=== PATIENT | female | born 1940 | race Caucasian/White ===

== ENCOUNTER 2018-02-26 06:53 | Day surgery (SDC) | payer MEDICARE, BC ==
[2018-02-26] MEDS ORDERED: Sodium Chloride 0.9% 1,000 ML IV SCH (07:30)
[2018-02-26] MEDS ORDERED: Propofol 200 MG/20 ML SDV ONE (07:37)
[2018-02-26] MEDS ORDERED: fentaNYL 100 MCG/2 ML SDV ONE (07:37)
--- NOTE | 2018-02-26 11:53 | OR ---
DATE OF PROCEDURE: 02/26/2018 PROCEDURE: Colonoscopy. FINDINGS: 1. External hemorrhoids, mild. 2. Descending colon polyp, approximately 5 mm, completely removed using cold biopsy forceps. COMPLICATIONS: None. 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 ANESTHESIA: MAC. PREOPERATIVE DIAGNOSIS: Family history of colorectal cancer. POSTOPERATIVE DIAGNOSIS: Family history of colorectal cancer. RISKS: Risks, benefits, alternatives, and limitations including, but not limited to infection, bleeding, and perforation were explained to the patient who wished to proceed. PROCEDURE IN DETAIL: The patient was placed in left lateral decubitus position. Digital rectal exam was performed without abnormality. The scope was introduced and advanced atraumatically to the ileocecal valve. A photo was taken. The scope was brought back to the ascending, transverse, descending colon, and retroflexed. The aforementioned polyp was identified and completely removed. No abnormalities on retroflexion. The external hemorrhoids showed no significant abnormalities. The patient tolerated the procedure well. Carlos Dubois MD /[id number]
== END 2018-02-26 10:20 | disposition home or self-care (01) ==
LOC: JP.SDS 06:53
PROVIDERS: ATTEND Surgery
DX: Z12.11 Encounter for screening for malignant neoplasm of colon (principal); D12.4 Benign neoplasm of descending colon; K64.4 Residual hemorrhoidal skin tags; Z80.0 Family history of malignant neoplasm of digestive organs
CPT/HCPCS: 45380; 88305; J2704; J3010; J7040

== ENCOUNTER 2018-05-19 12:07 | Emergency (ER) | payer MEDICARE, BC ==
--- NOTE | 2018-05-19 12:12 | EDM.PDOC ---
ED HPI GENERAL MEDICAL PROBLEM - General Chief Complaint: General Stated Complaint: MEDICAL VIA TRI Time Seen by Provider: 05/19/18 12:15 Source of Information: Reports: Patient History Limitations: Reports: No Limitations - History of Present Illness INITIAL COMMENTS - FREE TEXT/NARRATIVE: was at home, started to get dizzy, head felt full and her left eye went blurry. She denies chest pain or sob; she has a hx of hypertension. Denies any CAD or lung issues. She feels "ok" now. No fever. Recently treated for a tick bite that got infected, to the right lower leg, states she finished Keflex yesterday. She does tell me she has a hx of anxiety; she doesn't think that this was caused from that. She used to be on Lorazepam for this. Onset: Today Location: Reports: Head Severity: Mild Improves with: Reports: None Worsens with: Reports: None - Related Data Allergies Allergy/AdvReac Type Severity Reaction Status Date / Time dapsone Allergy Swollen Verified 02/26/18 07:20 Tongue oseltamivir phosphate Allergy Swollen Verified 02/26/18 07:20 [From Tamiflu] Eyes Penicillins Allergy Rash Verified 02/26/18 07:20 Home Meds: Home Meds Desonide [Desonide 0.05%] 1 applic TOP DAILY PRN 02/24/18 [History] Fluocinonide [Lidex 0.05% Crm] 1 applic TOP BID 02/24/18 [History] Triamcinolone Acetonide [Triamcinolone Acetonide 0.1% Crm] 1 applic TOP DAILY PRN 02/24/18 [History] Carboxymethylcellulose Sodium [Refresh Tears] 1 drop EYEBOTH ASDIRECTED [History] Propylene Glycol/Peg 400 [Systane Liquid Gel Eye Drops] 1 drop EYEBOTH BEDTIME 05/19/18 [History] Past Medical History HEENT History: Reports: Allergic Rhinitis, Impaired Vision Cardiovascular History: Reports: High Cholesterol Gastrointestinal History: Reports: Hemorrhoids 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: , 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 Musculoskeletal History: Reports: Fracture Psychiatric History: Reports: Anxiety Dermatologic History: Reports: Eczema - Infectious Disease History Infectious Disease History: Reports: Chicken Pox - Past Surgical History HEENT Surgical History: Reports: Tonsillectomy Cardiovascular Surgical History: Reports: None GI Surgical History: Reports: Appendectomy, Colonoscopy Musculoskeletal Surgical History: Reports: None Dermatological Surgical History: Reports: Skin Biopsy Social & Family History - Caffeine Use Caffeine Use: Reports: Coffee ED ROS GENERAL - Review of Systems Review Of Systems: See Below HEENT: Reports: Other (blurry left eye vision, resolved) Respiratory: Reports: No Symptoms Cardiovascular: Reports: No Symptoms GI/Abdominal: Reports: No Symptoms : Reports: No Symptoms Musculoskeletal: Reports: No Symptoms Skin: Reports: No Symptoms Neurological: Reports: Dizziness Psychiatric: Reports: No Symptoms ED EXAM, GENERAL - Physical Exam Exam: See Below Exam Limited By: No Limitations General Appearance: Alert, WD/WN, No Apparent Distress Eye Exam: Right Eye: Vision Changes (blurry, floaters, now resolved), Bilateral Eye: EOMI, PERRL Head: Atraumatic, Normocephalic Neck: Normal Inspection, Full Range of Motion Respiratory/Chest: No Respiratory Distress, Lungs Clear, Normal Breath Sounds Cardiovascular: Normal Peripheral Pulses, Regular Rate, Rhythm Peripheral Pulses: 4+: Posterior Tibial (L), Posterior Tibial (R), Dorsalis Pedis (L), Dorsalis Pedis (R) GI/Abdominal: Normal Bowel Sounds, Soft, Non-Tender Back Exam: Normal Inspection, Full Range of Motion Extremities: Normal Inspection, Normal Range of Motion, Non-Tender Neurological: Alert, Oriented, CN II-XII Intact, Normal Cognition, Normal Gait, No Motor/Sensory Deficits Psychiatric: Normal Affect, Normal Mood Skin Exam: Warm, Dry, Intact, Normal Color, No Rash EKG INTERPRETATION EKG Date: 05/19/18 Time: 11:47 Rhythm: NSR Rate (Beats/Min): 99 EKG Interpretation Comments: SR with LVH Course - Vital Signs Last Recorded V/S: Last Vital Signs Temp 96.4 F 05/19/18 12:21 Pulse 98 05/19/18 13:21 Resp 20 05/19/18 13:21 BP 164/73 H 05/19/18 13:22 Pulse Ox 99 05/19/18 13:21 - Orders/Labs/Meds Orders: Active Orders 24 hr Category Date Time Status UA W/MICROSCOPIC [URIN] Stat Lab 05/19/18 13:29 Ordered Labs: Laboratory Tests 05/19/18 05/19/18 05/19/18 Range/Units 12:26 12:26 13:29 WBC 6.2 (4.5-11.0) K/uL RBC 4.43 (3.30-5.50) M/uL Hgb 13.7 (12.0-15.0) g/dL Hct 40.2 (36.0-48.0) % MCV 91 (80-98) fL MCH 31 (27-31) pg MCHC 34 (32-36) % Plt Count 270 (150-400) K/uL Neut % (Auto) 61 (36-66) % Lymph % (Auto) 26 (24-44) % [place] % (Auto) 7 H (2-6) % Eos % (Auto) 5 H (2-4) % Baso % (Auto) 0 (0-1) % Sodium 143 (140-148) mmol/L Potassium 3.9 (3.6-5.2) mmol/L Chloride 105 (100-108) mmol/L Carbon Dioxide 27 (21-32) mmol/L Anion Gap 11.2 (5.0-14.0) mmol/L BUN 22 H (7-18) mg/dL Creatinine 0.8 (0.6-1.0) mg/dL Est Cr Clr Drug Dosing 44.36 mL/min Estimated GFR (MDRD) > 60 (>60) Glucose 114 H (74-106) mg/dL Calcium 9.1 (8.5-10.1) mg/dL Total Bilirubin 0.4 (0.2-1.0) mg/dL AST 23 (15-37) U/L ALT 30 (12-78) U/L Alkaline Phosphatase 84 (46-116) U/L Troponin I < 0.017 (0.000-0.056) ng/mL Total Protein 7.0 (6.4-8.2) g/dL Albumin 3.8 (3.4-5.0) g/dL Globulin 3.2 (2.3-3.5) g/dL Albumin/Globulin Ratio 1.2 (1.2-2.2) Urine Color Yellow Urine Appearance Clear Urine pH 6.5 (4.5-8.0) Ur Specific [place] 1.010 (1.008-1.030) Urine Protein Negative (NEGATIVE) mg/dL Urine Glucose (UA) Normal (NEGATIVE) mg/dL Urine Ketones Negative (NEGATIVE) mg/dL Urine Occult Blood Negative (NEGATIVE) Urine Nitrite Negative (NEGATIVE) Urine Bilirubin Negative (NEGATIVE) Urine Urobilinogen Normal (NORMAL) mg/dL Ur Leukocyte Esterase Negative (NEGATIVE) Urine RBC Not seen (0-5) Urine WBC Not seen (0-5) Ur Epithelial Cells Not seen Amorphous Sediment Not seen Urine Bacteria Not seen Urine Mucus Not seen Meds: Medications Discontinued Medications Generic Name Dose Route Start Last Admin Trade Name [place] PRN Reason Stop Dose Admin Clonidine HCl 0.1 mg 05/19/18 12:52 05/19/18 13:22 Catapres PO 05/19/18 12:53 0.1 mg ONETIME ONE Administration - Re-Assessments/Exams Free Text/Narrative Re-Assessment/Exam: 05/19/18 14:47 Reviewed blood, urine and head CT scan with patient; unremarkable; she has been asymptomatic throughout her whole stay. Up and walking around the halls, ate a meal. She is ready for discharge; BP has normalized; ?claritin caused high BP and visual changes. Advised to stay away from. Departure - Departure Time of Disposition: 14:30 Disposition: Home, Self-Care 01 Condition: Good Clinical Impression: Dizziness - Discharge Information Instructions: Vertigo, [place], Allergies, Adult, Dizziness Referrals: Sean Austin MD [Primary Care Provider] - Forms: ED Department Discharge Additional Instructions: Push fluids Change from lying down to sitting and sitting to standing slowly. avoid claritin Use over the counter Coricidin HBP for sinus pressure. Please see your doctor within the next week Return to the ER with worsening of symptoms. - Problem List & Annotations (1) Dizziness SNOMED Code(s): 824795956, 452357329 Code(s): R42 - DIZZINESS AND GIDDINESS Status: Acute Priority: Medium Current Visit: Yes - Problem List Review Problem List Initiated/Reviewed/Updated: Yes - My Orders Last 24 Hours: My Active Orders 05/19/18 13:29 UA W/MICROSCOPIC [URIN] Stat - Assessment/Plan Last 24 Hours: My Active Orders 05/19/18 13:29 UA W/MICROSCOPIC [URIN] Stat
[2018-05-19] MEDS ORDERED: cloNIDine 0.1 MG Tab PO ONE (12:52)
--- NOTE | 2018-05-19 13:23 | CT ---
Head wo Cont INDICATION: dizziness and left eye visual changes TECHNIQUE: CT images of the head obtained without IV contrast. Dosage reduction and iterative reconstruction techniques employed. COMPARISON: MR brain 10/22/2006 FINDINGS: No acute intracranial abnormality. No hemorrhage, edema or mass effect. Minimal chronic small vessel ischemic disease and atrophy. The ventricles are normal size. Skull intact. Visualized paranasal sinuses clear. IMPRESSION: Nothing acute.
== END 2018-05-19 15:46 | disposition home or self-care (01) ==
LOC: JP.ED 12:07
DX: R42 Dizziness and giddiness (principal); E78.00 Pure hypercholesterolemia, unspecified; F41.9 Anxiety disorder, unspecified; Z79.899 Other long term (current) drug therapy; Z88.0 Allergy status to penicillin; Z88.8 Allergy status to other drugs, medicaments and biological substances
CPT/HCPCS: 36415; 70450; 80053; 81001; 84484; 85025; 99285; A9270

== ENCOUNTER 2021-04-05 06:31 | Day surgery (SDC) | payer MEDICARE, BC ==
[2021-04-05] MEDS ORDERED: Sodium Chloride 0.9% 1,000 ML IV SCH (07:00)
[2021-04-05] MEDS ORDERED: Propofol 200 MG/20 ML SDV ONE (07:24)
[2021-04-05] MEDS ORDERED: fentaNYL 100 MCG/2 ML SDV ONE (07:24)
--- NOTE | 2021-04-05 14:32 | OR ---
DATE OF PROCEDURE: 04/05/2021 SURGEON: Carlos Dubois MD PROCEDURE: Colonoscopy. FINDINGS: Normal colonoscopy. COMPLICATIONS: None. 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 ANESTHESIA: MAC. PREOPERATIVE DIAGNOSIS: Family history of colorectal cancer. POSTOPERATIVE DIAGNOSIS: Family history of colorectal cancer. RISKS: Risks, benefits, alternatives, and limitations including, but not limited to infection, bleeding, perforation, false positives, and false negatives were explained to the patient who wished to proceed. PROCEDURE IN DETAIL: The patient was placed in left lateral decubitus position. Digital rectal exam was performed without abnormality. Scope was introduced and advanced atraumatically to the ileocecal valve. A photo was taken of appendiceal orifice. Scope was brought back to the ascending, transverse, descending colon, and retroflexed. No old or new blood. No masses. No polyps. No diverticulosis. No evidence of colitis. No abnormalities on retroflexion. Greater than 8 minutes was spent removing the scope. The prep was acceptable, approximately 90% of the luminal surface could be seen. The patient will be scheduled for a repeat colonoscopy. Carlos Dubois MD /[id number]
== END 2021-04-05 10:22 | disposition home or self-care (01) ==
LOC: JP.SDS 06:31
PROVIDERS: ATTEND Surgery
DX: Z12.11 Encounter for screening for malignant neoplasm of colon (principal); Z80.0 Family history of malignant neoplasm of digestive organs
CPT/HCPCS: J2704; J3010; J7030

== ENCOUNTER → 2021-12-13 | Day surgery (SDC) | payer MEDICARE, BC ==
[~2021-12-13] MED LIST: Sodium Chloride 0.9% 10 ML Syringe FLUSH PRN
== END | disposition home or self-care (01) ==
LOC: JP.SDS 08:26
PROVIDERS: ATTEND Ophthalmology
DX: H25.11 Age-related nuclear cataract, right eye (principal)
CPT/HCPCS: C9803

== ENCOUNTER 2021-12-27 08:23 | Day surgery (SDC) | payer MEDICARE, BC ==
[2021-12-27] MEDS ORDERED: Sodium Chloride 0.9% 10 ML Syringe FLUSH SCH (09:00)
== END 2021-12-27 09:59 | disposition home or self-care (01) ==
LOC: JP.SDS 08:23
PROVIDERS: ATTEND Ophthalmology
DX: H25.812 Combined forms of age-related cataract, left eye (principal)
CPT/HCPCS: 66984; V2632